=== PATIENT | female | born 1950 | race Caucasian/White ===

== ENCOUNTER 2018-06-07 12:56 | Emergency (ER) | payer MEDICARE, SELFPAY ==
[2018-06-07 13:10] VITALS: BP 154/117; PULSE 77; RESP 20; TEMP 35.7; O2SAT 95
--- NOTE | 2018-06-07 13:29 | ED.EPISTAXIS ---
HPI - Epistaxis <Nichol Berkowitz PA-C - Last Filed: 06/07/18 21:42> General Chief complaint: Nasal Problem Stated complaint: Bloody nose Time Seen by Provider: 06/07/18 13:28 Source: patient Mode of arrival: ambulatory Limitations: no limitations History of Present Illness HPI Narrative: This generally healthy 65-year-old female states her nose has been bleeding off and on for the last couple of days after she blew her nose. She denies any other trauma. She states that it was bleeding for 0.5 hr or so and unable to get it to stop prior to coming in today. She denies any other complaints such as recent upper respiratory symptoms on systems review. She has had occasional nose bleed in the past. 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 HEENT: PERRL, EOMI, left nare is not actively bleeding but there is blood pooled within, unable to see any specific bleeding site. Following Afrin installation, the right nasal wall is rough, and there are 2 small bleeding vessels to which silver nitrate was applied. No other bleeding areas encountered following a monitoring period after clamp was removed LUNGS: Clear to auscultation bilaterally. HEART: Rate and rhythm regular without murmur, normal S1 and S2, no S3 or S4. Initial Vital Signs Initial Vital Signs: Vital Signs Temperature 96.3 F L 06/07/18 13:10 Pulse Rate 77 06/07/18 13:10 Respiratory Rate 20 06/07/18 13:10 Blood Pressure 154/117 H 06/07/18 13:10 Pulse Oximetry 95 06/07/18 13:10 <Maryanne Pan DO - Last Filed: 06/08/18 07:45> Initial Vital Signs Initial Vital Signs: Vital Signs Temperature 96.3 F L 06/07/18 13:10 Pulse Rate 77 06/07/18 13:10 Respiratory Rate 20 06/07/18 13:10 Blood Pressure 154/117 H 06/07/18 13:10 Pulse Oximetry 95 06/07/18 13:10 Procedures <Nichol Berkowitz PA-C - Last Filed: 06/07/18 21:42> Epistaxis Control Nostril: left Nose Prepped With: oxymetazoline Direct Inspection: yes and anterior source identified Cautery Used: silver nitrate Patient Tolerated Procedure: well Course <Nichol Berkowitz PA-C - Last Filed: 06/07/18 21:42> Orders Ordered: Discontinued Medications Oxymetazoline HCl (Afrin) 2 sprays NASAL NOW ONE Stop: 06/07/18 13:39 Last Admin: 06/07/18 13:47 Dose: 2 sprays Vital Signs - 8 hr 06/07/18 14:00 06/07/18 14:30 Pulse Rate 70 71 Respiratory Rate 16 18 Blood Pressure [Left Arm] 172/80 H 158/88 H Pulse Oximetry 95 94 <DO Yannick River Last Filed: 06/08/18 07:45> Orders Ordered: Discontinued Medications Oxymetazoline HCl (Afrin) 2 sprays NASAL NOW ONE Stop: 06/07/18 13:39 Last Admin: 06/07/18 13:47 Dose: 2 sprays Vital Signs - 8 hr 06/07/18 14:00 06/07/18 14:30 Pulse Rate 70 71 Respiratory Rate 16 18 Blood Pressure [Left Arm] 172/80 H 158/88 H Pulse Oximetry 95 94 Discharge Plan Departure Patient Disposition: Home Clinical Impression: Epistaxis Discharge Date/Time: 06/07/18 15:33 Interventions: ED Discharge Assessment Last Done: 06/07/18 15:33 Instructions: DI for Nosebleed Activity Restrictions/Additional Instructions: Please return if you have a severe nosebleed again that is not stopping. Please avoid blowing your nose and other irritants for the next day or 2. You did have some irritated blood vessels that were cauterized with silver nitrate. If you do have a little bit of bleeding, you can use a spray of the Afrin on a cotton ball and put it your nostril for 10 min or so and use the nose clamp that we gave you to see if that is helpful. <Maryanne Pan, DO - Last Filed: 06/08/18 07:45> Cosign ED Attending Josephature Attestation: I was immediately available in the department for consultation. Documentation has been reviewed. I agree with assessment and plan.
[2018-06-07 13:30] VITALS: BP 164/94; PULSE 73; RESP 16; O2SAT 96
[2018-06-07] MEDS: OXYMETAZOLINE NASAL SPRAY 15 ML 2 SPRAYS NASAL (13:47)
--- NOTE | 2018-06-07 13:49 | PC.NURSE ---
pt reports, intermittent left nasal nose bleeds for couple of days. denies pain at this time, denies lightheadedness, denies nausea or dizziness, denies injuries. denies anticoagulant. upon meeting pt , wearing nose clips. denies blood going down back of throat. states,i think it stopped nose clamped removed, no bleeding, afrin applied.
[2018-06-07 14:00] VITALS: BP 172/80; PULSE 70; RESP 16; O2SAT 95
[2018-06-07 14:30] VITALS: BP 158/88; PULSE 71; RESP 18; O2SAT 94
== END 2018-06-07 15:33 | disposition home or self-care (01) ==
PROVIDERS: Emergency Provider Internal Medicine
DX: R04.0 Epistaxis (principal)
CPT/HCPCS: 30901; 99282; 99283